=== PATIENT | male | born 1940 | race Caucasian/White ===

== ENCOUNTER 2017-10-30 14:40 | Outpatient (CLI) | payer MEDICARE, BC | END 2017-10-30 14:41 | disposition home or self-care (01) | LOC: BICRAD 14:40 | PROVIDERS: ATTEND Family Medicine | DX: J20.9 Acute bronchitis, unspecified (principal) | CPT/HCPCS: 71046 ==

== ENCOUNTER 2017-12-02 10:33 | Observation (INO) | payer MEDICARE, BC ==
[2017-12-02 11:29] LABS: #Eosinphils 0.2 thou/uL (0.0-0.7); #Lymphocytes 1.4 thou/uL (1.20-3.40); #Monocytes 0.6 thou/uL (0.11-0.59); #Neutrophils 4.1 thou/uL (1.40-6.50); %Basophils 0.1 % (0.0-1.0); %Eosinophils 3.4 % (0.0-10.0); %Lymphocytes 22.9 % (21.0-51.0); %Neutrophils 64.6 % (42.0-75.0); Hemoglobin 14.7 g/dL (14.0-18.0); Mean Corpuscular HGB CONC 34.3 g/dL (32.0-36.0); Mean Corpuscular Hemoglobin 32.5 pg (27.0-31.0); Mean Corpuscular Volume 94.7 fl (80.0-94.0); Mean Platelet Volume 8.4 fL (7.4-10.4); Platelet Count 126 thou/uL (130-400); RBC Distribution Width 12.9 % (11.5-14.5); Red Blood Cell (RBC) Count 4.54 mill/uL (4.70-6.10); White Blood Cell (WBC) Count 6.3 thou/uL (4.8-10.8)
[2017-12-02 11:56] LABS: CKMB 3.1 ng/mL (0-6.6); Troponin I Less than 0.010 ng/mL (< 0.028)
[2017-12-02 11:58] LABS: ALT (SGPT) 23 U/L (8-55); AST (SGOT) 24 U/L (5-34); Albumin 3.6 g/dL (3.4-4.8); Alkaline Phosphatase 54 U/L (40-150); Anion Gap 10 mmol/L (10-20); BUN (Urea Nitrogen) 15 mg/dL (8.4-25.7); Bilirubin, Total 0.7 mg/dL (0.2-1.2); Calc. Creatinine Clearance 0 mL/min (70-130); Calcium 8.9 mg/dL (7.8-10.44); Carbon Dioxide 25 mmol/L (23-31); Chloride 106 mmol/L (98-107); Estimated GFR-MDRD 73; Globulin 2.3 g/dL (2.4-3.5); Glucose 100 mg/dL (83-110); Potassium 4.6 mmol/L (3.5-5.1); Protein, Total 5.9 g/dL (5.8-8.1); Sodium 136 mmol/L (136-145)
--- NOTE | 2017-12-02 13:09 | CT ---
CT BRAIN NONCONTRAST: HISTORY: A 77-year-old male with headache, dizziness, blurred vision, nausea, and emesis. FINDINGS: There is no midline shift or any other mass effect. There is no evidence of acute intracranial hemor rhage, large cortical infarct, obstructive hydrocephalus, or extraaxial fluid collection. The calvar ium is intact. There is diffuse parenchymal volume loss. There are low attenuation areas in the whi te matter. These are nonspecific, but in a patient of this age, they are probably chronic ischemic w gregory matter changes due to microvascular atherosclerosis. IMPRESSION: 1) No acute intracranial findings. 2) Involutional changes and chronic ischemic white matter changes. jn [] POS: [facility]
[2017-12-02] MEDS ORDERED: hydrALAZINE 20 MG/ML VIAL SLOW IVP PRN (13:52)
[2017-12-02] MEDS ORDERED: Lorazepam 2 MG/ML VIAL SLOW IVP PRN (14:04)
[2017-12-02] MEDS ORDERED: traMADol HCl 50 MG TAB PO PRN (14:05)
[2017-12-02] MEDS ORDERED: Acetaminophen 325 MG TAB PO PRN (14:18)
[2017-12-02 14:22] LABS: Prothrombin Time 13.4 SEC (12.0-14.7)
--- NOTE | 2017-12-02 14:30 | PDOC.EVN ---
Event Note - Event Note Event Note: [facility]ATED #[id number]
[2017-12-02 14:42] VITALS: BMI 35.9
[2017-12-02 14:43] LABS: Hemoglobin A1c 5.8 % (4.0-6.0)
[2017-12-02] MEDS ORDERED: Melatonin 3 MG TAB PO PRN (17:24)
[2017-12-02] MEDS ORDERED: Sodium Chloride 0.65% Nasal 44 ML BOT EA NARE PRN (17:25)
--- NOTE | 2017-12-02 18:15 | HP ---
DATE OF ADMISSION: 12/02/2017 ADMITTING COMPLAINT: Blurry vision and gait disturbance. HISTORY OF PRESENT ILLNESS: This is a 77-year-old male who states that for the past 2 months or so o n and off, he has been having gait disturbance as well as blurry vision. Blurry vision started to ge t significantly worse in the last 2-3 days. Patient states that he also experienced tingling in the left hand and arm and also notes that while riding his horse, he is unable to swing his right leg angela und to get on the horse. The patient states prior to 2 months ago, he never had any of these symptom s. It is the first time he experienced them and have been progressively getting worse for the last 2 months. The patient otherwise denies any other alleviating or aggravating factors. No other associ ated symptoms or complaints noted currently; however, did state that in the past when he had some pos terior headaches as well as some nausea and vomiting. ALLERGIES: No known drug allergies. MEDICATIONS: See MAR. FAMILY HISTORY: Positive for hypertension on both sides. SOCIAL HISTORY: He smoked 30 years, a pack a day, quit about 25 years ago. Social drinker. REVIEW OF SYSTEMS: Twelve point review of systems is performed. Pertinent positives in the HPI. PHYSICAL EXAMINATION: VITAL SIGNS: Blood pressure 138/88, temperature 98, respiratory rate of 18, pulse of 88. GENERAL: Patient in no acute distress, sitting in bed. HEENT: Pupils are equal, round, reactive to light and accommodation. Extraocular muscles intact. O ral cavity moist and pink. Thyroid mobile, tender, non-nodular. NECK: Supple. No carotid artery bruits appreciated. CARDIOVASCULAR: Regular rate and rhythm. S1 and S2. No murmurs, rubs or gallops appreciated. LUNGS: Clear to auscultation bilaterally. No respiratory distress. Aerating well. ABDOMEN: Positive bowel sounds, soft, nontender. EXTREMITIES: A 1+ pitting edema bilateral lower extremities, 2+ peripheral pulses noted. NEUROLOGIC: Cranial nerves II-XII intact. Patient is alert and oriented x3. IMAGING: CT scan shows no acute intracranial findings, involutionary changes and chronic ischemic wh ite matter changes noted. LABORATORY DATA: CBC within normal limits. PT/INR within normal limits. BNP, metabolic panel withi n normal limits. ASSESSMENT AND PLAN: 1. Blurry vision. 2. Gait disturbance. 3. Diabetes mellitus type 2. 4. Hypertension. 5. Anxiety. At this point in time, we will admit the patient to the Internal Medicine team, tele monitoring. Miguel agrawal Neurology. We will obtain MRI of his head. The patient also states that he has had surgeries i n his cervical and lumbar spine. We will also obtain MRIs of the cervical and lumbar spine just to haja hinson sure he does not have any post-surgical changes or anything new that may be causing gait disturba nces as well. Blood pressure is stable. Target blood pressure systolic 120-140, heparin and Protoni x for GI DVT prophylaxis. We will obtain an A1c. The patient states that his last A1c was 5.7 bev vogel. We will hold off a.c. and at bedtime Accu-Cheks and sliding scale as if A1c is below 6, then p atient may not need this currently in the hospital and resume metformin upon the time of discharge. Case and plan discussed with the patient and at length. They understand and agree with this aishwarya n.
[2017-12-02] MEDS: Heparin 5,000 UNITS/ML VIAL SC SCH (20:15)
[2017-12-02] MEDS ORDERED: Escitalopram Oxalate 10 mg Tablet PO SCH (21:00)
[2017-12-02] MEDS ORDERED: traZODone HCl 150 MG TAB PO SCH ×2 (21:00→23:15)
[2017-12-02] MEDS ORDERED: Simvastatin 5 MG TAB PO SCH (21:00)
[2017-12-03 05:02] LABS: #Basophils 0.1 thou/uL (0.0-0.2); #Eosinphils 0.1 thou/uL (0.0-0.7); #Lymphocytes 1.5 thou/uL (1.20-3.40); #Monocytes 0.5 thou/uL (0.11-0.59); #Neutrophils 3.5 thou/uL (1.40-6.50); %Eosinophils 1.5 % (0.0-10.0); %Lymphocytes 26.4 % (21.0-51.0); %Monocytes 9.5 % (0.0-10.0); %Neutrophils 61.5 % (42.0-75.0); Hemoglobin 15.7 g/dL (14.0-18.0); Mean Corpuscular HGB CONC 34.3 g/dL (32.0-36.0); Mean Corpuscular Hemoglobin 32.2 pg (27.0-31.0); Mean Corpuscular Volume 93.9 fl (80.0-94.0); Mean Platelet Volume 8.5 fL (7.4-10.4); Platelet Count 136 thou/uL (130-400); RBC Distribution Width 12.8 % (11.5-14.5); Red Blood Cell (RBC) Count 4.87 mill/uL (4.70-6.10); White Blood Cell (WBC) Count 5.7 thou/uL (4.8-10.8)
[2017-12-03 05:29] LABS: Anion Gap 10 mmol/L (10-20); BUN (Urea Nitrogen) 11 mg/dL (8.4-25.7); Calc. Creatinine Clearance 114 mL/min (70-130); Calcium 9.5 mg/dL (7.8-10.44); Carbon Dioxide 26 mmol/L (23-31); Cardiac Risk 3.6 (Less than 4.5); Chloride 106 mmol/L (98-107); Cholesterol 175 mg/dl (< 200 Desired); Estimated GFR-MDRD 71; Glucose 119 mg/dL (83-110); HDL Cholesterol 49 mg/dL (>60 Neg Risk); LDL Cholesterol, Calculated 107 mg/dL; Potassium 4.5 mmol/L (3.5-5.1); Sodium 137 mmol/L (136-145); Triglycerides 93 mg/dL (Less than 150)
[2017-12-03 06:12] VITALS: TEMP 98.5
[2017-12-03] MEDS ORDERED: Clopidogrel Bisulfate 75 MG TAB PO SCH (09:00)
[2017-12-03] MEDS ORDERED: Pregabalin 50 MG CAP PO SCH (09:00)
[2017-12-03] MEDS ORDERED: Aspirin 81 mg Enteric Coated Tablet PO SCH (09:00)
[2017-12-03] MEDS: Heparin 5,000 UNITS/ML VIAL SC SCH (10:58)
[2017-12-03 11:26] VITALS: BP 154/73
--- NOTE | 2017-12-03 12:17 | PDOC.EVN ---
Event Note - Event Note Event Note: THE DICTATION SOFTWARE IS DOWN THUS USING THIS EVENT NOTE THE OFFICIAL DISCHARGE SUMMARY Admission date: 12/02/2017 Discharge date: 12/03/2017 Hospital course: 77 yr old male admitted due to blurry vision and headaches. The patient was admitted to internal medicine and also seen by neurology. the patient was advised to hold all BP medications if SBp was less than 120mmHg. The patient was to follow up out patient with his PCP and neurology in 1-2 weeks for further management and care. Patient was asymptomatic at point in time of discharge. Case and plan d/w patient and at length, they understand and agree with this plan Dipso: home FU: PCP and neurology in 2 weeks activity: as tolerated, with assistance as needed condition: stable prognosis: good diet: low fat, low calorie, high fiber diet Meds: see MCKENNA
--- NOTE | 2017-12-04 22:15 | CON ---
DATE OF CONSULTATION: 12/03/2017 IMPRESSION: 1. Transient lightheadedness and blurred vision secondary to hypotension. 2. Borderline diabetes. 3. Peripheral vascular disease. 4. Coronary artery disease. PLAN: 1. Continue Plavix. 2. Discontinue lisinopril. 3. Patient to be discharged home. HISTORY OF PRESENT ILLNESS: Mr. Pollock is a 77-year-old man, who came in yesterday due to complaints of having some diffuse blurred vision and feeling light headed. They checked his pressure at home a nd it was running around 90/50. He came into the emergency room for evaluation. He had a CT scan of the brain done, which was unremarkable. His laboratory studies show unremarkable CBC and serum chem istries. His symptoms have resolved yesterday. He reports having some neck pain and lower back pain but denies any focal weakness, numbness, slurred speech, double vision, or difficulty swallowing. PAST HISTORY: Otherwise unremarkable. FAMILY HISTORY: Noncontributory. SOCIAL HISTORY: No tobacco or alcohol. ALLERGIES: Hydrocodone and morphine. MEDICATIONS: Reviewed. REVIEW OF SYSTEMS: Extreme claustrophobia. PHYSICAL EXAM: GENERAL: Somewhat overweight elderly man sitting in a chair, in no distress. VITAL SIGNS: Stable. He is afebrile. HEENT: Unremarkable. NECK: Supple. EXTREMITIES: No cyanosis. NEUROLOGIC: He is alert and appropriate. His speech is fluent and clear. His exam is nonfocal. LABORATORY STUDIES: A1c was 5.8, lipid panel showed a ratio at 3.6. SUMMARY: This gentleman's symptoms are likely attributable to his hypotension. He is back to his ba anton. I do not see the need to do an MRI given his difficulties with claustrophobia. We happy to follow up with him as an outpatient.
--- NOTE | 2018-01-20 15:09 | EKG ---
Test Reason : DIZZINESS Blood Pressure : / mmHG Vent. Rate : 054 BPM Atrial Rate : 054 BPM P-R Int : 150 ms QRS Dur : 092 ms QT Int : 428 ms P-R-T Axes : 029 -30 010 degrees QTc Int : 405 ms Sinus bradycardia with marked sinus arrhythmia Left axis deviation Minimal voltage criteria for LVH, may be normal variant Abnormal ECG Confirmed by JOSE RAUL LEO ([id number]), purchase request editor JERICHO MONCADA ([id number]) on 01/20/2018 3:08:53 PM Referred By: WESLY LEO Confirmed By:JOSE RAUL LEO
== END 2017-12-03 12:45 | disposition home or self-care (01) ==
LOC: ERS 10:33 → 2SE 12:46
PROVIDERS: ADMIT Internal Medicine; ATTEND Internal Medicine
DX: I95.9 Hypotension, unspecified (principal); H53.8 Other visual disturbances; R42 Dizziness and giddiness; R20.2 Paresthesia of skin; R26.9 Unspecified abnormalities of gait and mobility; I10 Essential (primary) hypertension; F41.9 Anxiety disorder, unspecified; I25.10 Atherosclerotic heart disease of native coronary artery without angina pectoris; E11.51 Type 2 diabetes mellitus with diabetic peripheral angiopathy without gangrene; Z87.891 Personal history of nicotine dependence; Z79.02 Long term (current) use of antithrombotics/antiplatelets; Z79.82 Long term (current) use of aspirin; Z79.84 Long term (current) use of oral hypoglycemic drugs; Z79.899 Other long term (current) drug therapy; Z88.5 Allergy status to narcotic agent
CPT/HCPCS: 70450; 80048; 80061; 82553; 83036; 83930; 84484; 85025; 85610; 85730; 93005; 93306; 97139 ×2; 99285; G0378; 36415; 80053; 84443; G9162-GN-CH; G9163-GN-CH; J1644

== ENCOUNTER 2018-03-20 09:06 | Day surgery (SDC) | payer MEDICARE, BC ==
[2018-03-19 12:22] VITALS: BMI 34.9
[2018-03-20] MEDS ORDERED: Midazolam HCl 2 mg/2 ml Vial ONE (11:44)
--- NOTE | 2018-03-20 11:48 | CT ---
CT CERVICAL SPINE: History: Neck pain. Technique: Axial images were obtained with coronal and sagittal reconstructions. FINDINGS: CT images demonstrate disc space height loss with anterior and posterior osteophytes seen at the C3-4 level. There is also anterior and posterior osteophytes at C5-6, C6-7, and C7-T1 levels. C1-2: Unremarkable. C2-3: There is some right sided C2-3 facet hypertrophic changes. Broad based central disc protrusion is seen. No significant evidence of high grade central stenosis seen. A moderate degree of right C2-3 neural foraminal narrowing is seen due to right sided facet hypertrophy. C3-4: Disc space height loss is seen. There is broad based disc osteophyte complex centrally compress ing the thecal sac, resulting in a moderate degree of central spinal stenosis. Moderate bilateral C3- 4 neural foraminal narrowing is seen due to uncal vertebral osteophyte hypertrophy. C4-5: Mild right sided C4-5 neural foraminal narrowing is seen. The left neural foramen is patent. C5-6: No significant degree of central spinal stenosis seen. The neural foramen are patent. C6-7: Moderate bilateral C6-7 neural foraminal narrowing is seen due to uncal vertebral osteophyte hy pertrophy. Central canal is patent. C7-T1: Unremarkable. There also appears to be bilateral atherosclerotic plaque seen in the distal right and left common ca rotid arteries extending to the right and left internal carotid arteries. Some heterogeneity noted in the lower pole of the lower pole of the left thyroid globe. Further laura p using sonography may be of use. IMPRESSION: 1. Cervical spine degenerative changes with central and neural foraminal narrowing as described above . POS: [facility]
[2018-03-20] MEDS ORDERED: Fentanyl 100 MCG/2 ML VIAL ONE (12:45)
--- NOTE | 2018-03-20 13:18 | RAD ---
RADIOGRAPH LUMBAR SPINE 3 VIEWS: DATE: 03-20-18 HISTORY: 78-year-old male with chronic low back pain. TECHNIQUE: Three lateral views in flexion, extension and neutral. FINDINGS: Frontal view radiograph of 12-31-14 demonstrated lumbar type vertebrae. Vertebral body heights are lyn ntained except for minimal, chronic appearing anterior wedging of L5, L1, and T12. Moderate disc spac e narrowing at all levels. Slight degenerative retrolisthesis of L1 on L2. Mild grade I anterolisthes is of L2 on L3. Grade I anterolisthesis of L4 on L5 is minimally worse on the flexion view compared t o the extension view. Multilevel high grade degenerative facet disease throughout the mid and lower l umbar spine. Laminectomy defects from L2-3 through L5-S1. IMPRESSION: 1. Lumbar spondylosis with multilevel degenerative disc disease and facet osteoarthrosis. 2. Status post laminectomies throughout the mid and lower lumbar spine. 3. Grade I spondylolisthesis at L4-L5, minimally unstable. SIA POS: [facility]
[2018-03-20] MEDS ORDERED: Gadobenate Dimeglumine 529 MG/1 ML (20ML VIAL) ONE (13:59)
--- NOTE | 2018-03-20 15:53 | MRI ---
PRE AND POST CONTRAST ENHANCED MRI IMAGES LUMBAR SPINE: History: Patient with low back pain. Technique: Multiplanar, multisequence pre and post contrast enhanced MR images of the lumbar spine ob tained. Comparison: Pre-operative lumbar spine MRI 10-07-14. FINDINGS: T12-L1: Unremarkable. L1-2: There is some disc desiccation seen. There is a broad based disc bulge with bilateral facet hyp ertrophy. This results in mild to moderate central and lateral recess stenosis. Moderate bilateral ne ural foraminal narrowing also seen. MRI appearance is stable and unchanged since the previous compari son exam. L2-3: Disc desiccation is seen. There is irregularity involving the inferior endplate of L2 and super ior endplate of L3. There is interval development of Modic type II changes in the superior endplate o f L3. There is a broad based disc bulge with bilateral facet and ligamentum flavum hypertrophy. Synov ial hypertrophy is also present at this level. Ligamentum flavum hypertrophy is also present. Finding s demonstrate moderate to severe central and lateral recess stenosis, not significantly changed since the previous exam. There does appear to be moderate to severe bilateral neural foraminal narrowing a lso seen. L3-4: Disc desiccation is seen. There is a broad based disc bulge with bilateral facet hypertrophy. T he patient has had interval L4 laminectomy. No significant degree of L3-4 central spinal stenosis is seen. Moderate bilateral neural foraminal narrowing is also seen due to facet hypertrophic changes at L3-4. No significant evidence of epidural scarring is seen at L3 or L4 levels. L4-5: There is some disc desiccation seen. There is a broad based disc bulge. There is moderate to se lars right and moderate left sided neural foraminal narrowing due to facet hypertrophic changes. No s ignificant degree of central spinal stenosis is seen. L5-S1: Disc desiccation is seen. There is bilateral facet hypertrophy seen. There is moderate to andrea re left and moderate right sided neural foraminal narrowing due to facet hypertrophic changes. This i s not significantly changed since the previous comparison examination. IMPRESSION: Interval L4 laminectomy changes. No significant central or neural foraminal narrowing is seen when co mpared to the previous comparison exam. MRI appearance demonstrates no obvious evidence of recurrent disc protrusions or significant interval changes. There does appear to be some newly developed Modic changes in the superior endplate of L3. POS: [facility]
--- NOTE | 2018-03-20 16:08 | MRI ---
MRI CERVICAL SPINE WITH AND WITHOUT CONTRAST: INDICATIONS: Neck pain. History of remote surgery. TECHNIQUE: Multiplanar, multisequential imaging of the cervical spine obtained. Post contrast images obtained with the administration of IV MultiHance. FINDINGS: The cervical vertebrae maintain height and alignment. Vertebral body signal is normal. No edema. N o compression deformity. Mild loss of disk space at all levels of the cervical spine. At C2-C3 there is a disk osteophyte complex flattening the thecal sac and abutting the anterior cord. Mild right foraminal narrowing due to facet and uncinate hypertrophy. At C3-C4, broad-based disk bulge and spondylosis impinge on a mildly flattened anterior cord. Bilate ral foraminal narrowing due to facet and uncinate hypertrophy. At C4-C5, there is disk bulge and spondylosis abutting the anterior cord. Hypertrophic changes in th e posterior canal abut the posterior cord. Bilateral foraminal narrowing secondary to facet and unci leno hypertrophy. At C5-C6, mild spondylosis. Anterior subarachnoid space is effaced but is preserved. Mild bilateral foraminal narrowing due to facet and uncinate hypertrophy. At C6-C7, posterior disk bulge and spondylosis efface the anterior subarachnoid space. No significan t cord impingement. Bilateral foraminal narrowing secondary to facet and uncinate hypertrophy. At C7-T1, anterior subarachnoid space is preserved. Mild left foraminal narrowing. At T1-T2, disk bulge and spondylosis abut the anterior cord. Cervical cord signal is normally maintained. No abnormal enhancement identified. IMPRESSION: Spondylosis encroaches into the spinal canal and is most prominent at the C2-C3, C3-C4, and C4-C5 lev els, as described above. Foraminal encroachment at multiple levels, as noted above. POS: [facility]
--- NOTE | 2018-03-20 17:07 | RAD ---
CERVICAL SPINE FIVE VIEWS: HISTORY: Neck pain. FINDINGS: Vertebral body heights are maintained. Disk space narrowing and minimal degenerative retrolisthesis at the C3-C4 level, where osteophytosis is also most pronounced. At the C4-C5 level, there is 0.4 cm spondylolisthesis upon flexion. The cervicothoracic junction is intact. No acute fracture, disloca tion, or aggressive osseous erosions. Calcification over the carotid bifurcations. IMPRESSION: 1. Cervical spondylosis. Translational motion at the C4-C5 level. 2. Atherosclerosis. POS: [facility]
== END 2018-03-20 16:37 | disposition home or self-care (01) ==
LOC: SDC/OP 09:06
PROVIDERS: ATTEND Surgery
DX: M47.892 Other spondylosis, cervical region (principal); M50.30 Other cervical disc degeneration, unspecified cervical region; M48.061 Spinal stenosis, lumbar region without neurogenic claudication; M51.36 Other intervertebral disc degeneration, lumbar region; I25.10 Atherosclerotic heart disease of native coronary artery without angina pectoris; E78.5 Hyperlipidemia, unspecified; I10 Essential (primary) hypertension; E11.51 Type 2 diabetes mellitus with diabetic peripheral angiopathy without gangrene; I70.211 Atherosclerosis of native arteries of extremities with intermittent claudication, right leg; Z79.82 Long term (current) use of aspirin; Z79.02 Long term (current) use of antithrombotics/antiplatelets; Z79.84 Long term (current) use of oral hypoglycemic drugs; Z79.899 Other long term (current) drug therapy; Z88.5 Allergy status to narcotic agent
CPT/HCPCS: 72050; 72100; 72125; 72156; 72158; 82565; A9579; J2250; J3010

== ENCOUNTER 2018-06-13 12:31 | Emergency (ER) | payer MEDICARE, BC ==
[2018-06-13] MEDS ORDERED: Diazepam 2.5 MG GEL ONE (13:09)
[2018-06-13] MEDS ORDERED: Lorazepam 2 MG/ML VIAL ONE (13:12)
== END 2018-06-13 13:25 | disposition home or self-care (01) ==
LOC: SCSER 12:31
DX: F41.9 Anxiety disorder, unspecified (principal); M25.562 Pain in left knee; T49.0X5A Adverse effect of local antifungal, anti-infective and anti-inflammatory drugs, initial encounter; K21.9 Gastro-esophageal reflux disease without esophagitis; Z87.891 Personal history of nicotine dependence
CPT/HCPCS: 96372; J2060

== ENCOUNTER 2018-08-20 08:57 | Outpatient (CLI) | payer MEDICARE, BC ==
--- NOTE | 2018-08-20 11:13 | CT ---
CT ABDOMEN WITH AND WITHOUT IV CONTRAST CT PELVIS WITH AND WITHOUT IV CONTRAST: Date: 08-20-18 History: Gross hematuria. Comparison: Noncontrast CT abdomen and pelvis 11-28-14 FINDINGS: There is a nonobstructing inferior pole right renal calculus measuring approximately 7 mm with smalle r nonobstructing calculi in the superior pole right kidney. The previously seen inferior pole left re nal calculus on the prior study in 2014 is not evident on this exam. No ureteral calculus is seen justina aterally and there is no evidence of hydronephrosis. No definite persistent filling defect is seen in the visualized opacified portions of the renal collecting systems and segmentally opacified ureters bilaterally. There is a low density focus seen within the anterior aspect mid port right kidney which is felt to be outside of the confines of the renal collecting system and may represent a small parap elvic renal cyst in this region. No enhancing renal mass is seen bilaterally. Mild vascular calcifications are seen in the limited visualized thoracic aorta with dense vascular ca lcifications involving the coronary arteries as well as the abdominal aorta and iliac arteries. The liver, spleen, pancreas, bilateral adrenal glands, and partially distended urinary bladder demons trate a normal CT appearance. Prominent calcifications are again seen in the prostate gland. There is colonic diverticulosis noted. There has been no other interval change compared to the prior study. There are degenerative changes i n the spine. IMPRESSION: 1. Nonobstructing right renal calculi. 2. No left renal or bilateral ureteral calculi are seen. 3. No enhancing renal mass is seen bilaterally. There is a low density focus in the midportion right kidney which appears outside of the confines of the renal collecting system and is difficult to adequ ately characterize due to very small size and could potentially represent a parapelvic reanl cyst. Th ere is slight increased density present in this lesion on post contrast images, but this could be art ifactual due to small size. 4. Dense atherosclerotic vascular calcifications. 5. Colonic diverticulosis. POS: [facility]
[2018-08-20] MEDS ORDERED: Iopamidol 370 76% 100 ML VIAL ONE (11:18)
== END 2018-08-20 08:58 | disposition home or self-care (01) ==
LOC: BICCT 08:57
PROVIDERS: ATTEND Urology
DX: R31.0 Gross hematuria (principal); N20.0 Calculus of kidney; I70.0 Atherosclerosis of aorta; I25.10 Atherosclerotic heart disease of native coronary artery without angina pectoris; I70.8 Atherosclerosis of other arteries; N28.9 Disorder of kidney and ureter, unspecified; K57.30 Diverticulosis of large intestine without perforation or abscess without bleeding; M47.816 Spondylosis without myelopathy or radiculopathy, lumbar region
CPT/HCPCS: 36415; 74178; 82550; 82565; 82607; 84436

== ENCOUNTER 2018-10-25 00:18 | Outpatient (CLI) | payer MEDICARE, BC ==
[2018-10-25 11:57] LABS: Hemoglobin 14.4 g/dL (14.0-18.0); Mean Corpuscular HGB CONC 31.6 g/dL (32.0-36.0); Mean Corpuscular Hemoglobin 30.4 pg (27.0-31.0); Mean Corpuscular Volume 96.1 fL (78.0-98.0); Mean Platelet Volume 10.1 fL (7.4-10.4); PTT 28.4 SEC (22.9-36.1); Platelet Count 144 thou/uL (130-400); Prothrombin Time 13.1 SEC (12.0-14.7); RBC Distribution Width 12.7 % (11.5-14.5); Red Blood Cell (RBC) Count 4.76 mill/uL (4.70-6.10); White Blood Cell (WBC) Count 5.1 thou/uL (4.8-10.8)
[2018-10-25 12:20] LABS: Anion Gap 12 mmol/L (10-20); BUN (Urea Nitrogen) 13 mg/dL (8.4-25.7); Calc. Creatinine Clearance 0 mL/min (70-130); Calcium 9.7 mg/dL (7.8-10.44); Carbon Dioxide 30 mmol/L (23-31); Chloride 101 mmol/L (98-107); Estimated GFR-MDRD 68; Glucose 101 mg/dL (83-110); Potassium 4.6 mmol/L (3.5-5.1); Sodium 138 mmol/L (136-145)
--- NOTE | 2018-10-26 16:42 | EKG ---
Test Reason : Blood Pressure : / mmHG Vent. Rate : 045 BPM Atrial Rate : 045 BPM P-R Int : 162 ms QRS Dur : 096 ms QT Int : 448 ms P-R-T Axes : 057 -20 004 degrees QTc Int : 387 ms Marked sinus bradycardia with sinus arrhythmia baseline artifact Abnormal ECG When compared with ECG of 02-DEC-2017 Manual comparsion needed Confirmed by DR. Nafisa LUNDBERG ([id number]) on 10/26/2018 4:42:14 PM Referred By: STEPHANIE Confirmed By:DR. Nafisa LUNDBERG
== END 2018-10-25 00:19 | disposition home or self-care (01) ==
LOC: LABBT 00:18
PROVIDERS: ATTEND Surgery
DX: Z01.818 Encounter for other preprocedural examination (principal); M51.16 Intervertebral disc disorders with radiculopathy, lumbar region
CPT/HCPCS: 80048; 85027; 85610; 85730; 93005; 93010

== ENCOUNTER 2018-11-01 05:56 | Day surgery (SDC) | payer MEDICARE, BC ==
[2018-11-01] MEDS ORDERED: Fentanyl 100 MCG/2 ML VIAL ONE (06:12)
[2018-11-01] MEDS ORDERED: Lidocaine 2% Jelly 5 ML TUBE ONE (06:12)
[2018-11-01] MEDS ORDERED: Bacitracin Zinc Ointment 30 gm TUBE ONE (06:51)
[2018-11-01] MEDS ORDERED: Thrombin 5000 UNITS/5 ML VIAL ONE (06:51)
[2018-11-01] MEDS ORDERED: Sodium Chloride 0.9% 10 ML ONE (06:53)
[2018-11-01] MEDS ORDERED: Milk Of Magnesia 30 ML UDCUP PO PRN (10:01)
[2018-11-01] MEDS ORDERED: tiZANidine HCl 4 MG TAB PO PRN (10:01)
[2018-11-01] MEDS ORDERED: Promethazine HCl 25 MG/ML VIAL IM PRN (10:01)
[2018-11-01] MEDS ORDERED: Acetaminophen 325 MG TAB PO PRN (10:01)
[2018-11-01] MEDS ORDERED: Meperidine HCl/PF 25 MG/ML VIAL SLOW IVP PRN (10:01)
[2018-11-01] MEDS ORDERED: Mag-Al 1200 mg/1200 mg/30 ML UDCUP PO PRN (10:01)
[2018-11-01] MEDS ORDERED: Fleet Enema 133 ML BOT PR PRN (10:01)
[2018-11-01] MEDS ORDERED: traMADol HCl 50 MG TAB PO PRN (10:01)
[2018-11-01] MEDS ORDERED: Bisacodyl 10 MG SUPP PR PRN (10:01)
[2018-11-01] MEDS ORDERED: ALPRAZolam 0.5 MG TAB PO PRN ×2 (10:03→10:54)
[2018-11-01] MEDS ORDERED: NAPROXEN SODIUM PO PRN (10:03)
--- NOTE | 2018-11-01 10:17 | OP ---
DATE OF PROCEDURE: 11/01/2018 OPERATING ROOM: OR 11. WOUND CLASSIFICATION: Type 1 wound. FISHING VESSEL OPERATOR: Ludwig Germain PA-C. 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 PROCEDURES PERFORMED: Bilateral revision L2-L3 hemilaminotomy, foraminotomies for decompression of the cauda equina and nerve roots. Modifier-50 should be added to this surgery as this was a bilateral surgery. DESCRIPTION OF PROCEDURE: After informed consent was obtained from the patient, the patient was brought to the OR. Proper patient, pause, and identification were carried out. He was placed in excellent general endotracheal anesthesia and positioned prone on the OR table. All appropriate points were padded. We identified the prior lumbar wound and this region was sterilely cleansed, prepared, and draped. Proper patient, pause, and identification were carried out. The wound was then opened with a combination of sharp, monopolar, and blunt dissection, and the L2-L3 segment was identified. This region was sterilely cleansed, prepared, and draped. Proper patient, pause, and identification were carried out prior to wound was partially opened and expose the L2-L3 segment. Localization film confirmed our area of interest. We then performed an L2-L3 bilateral revision hemilaminotomy and foraminotomy and partial facetectomies with excellent decompression of the common dural tube and the L2 and L3 nerve roots. Copious irrigation occurred throughout as did maximizing hemostasis. The wound was then copiously irrigated and closed in anatomic layers following hemostasis, sprinkled vancomycin powder. The patient emerged from anesthesia. There was no spinal fluid leak. Job ID: [id number]
[2018-11-01] MEDS ORDERED: Naproxen 500 MG TAB PO PRN (10:54)
[2018-11-01] MEDS: Sodium Chloride 0.9% 1,000 ML IV SCH (11:28)
[2018-11-01] MEDS: Acetaminophen/Codeine 30-300mg Tablet PO PRN ×2 (11:29→21:57)
[2018-11-01 11:32] VITALS: BMI 35.8
[2018-11-01] MEDS: CEFAZOLIN 2 GM in Premix Bag 1 BAG IVPB SCH ×2 (16:13→22:00)
[2018-11-01] MEDS ORDERED: METFORMIN HCL 1000 MG PO SCH (17:00)
[2018-11-01] MEDS ORDERED: metFORMIN 500 MG TAB PO SCH (17:00)
[2018-11-01] MEDS: Tamsulosin HCl 0.4 MG CAP PO SCH (20:29)
[2018-11-01] MEDS ORDERED: Tamsulosin HCl 0.4 MG CAP PO SCH (21:00)
[2018-11-01] MEDS ORDERED: traZODone HCl 150 MG TAB PO SCH ×2 (21:00)
[2018-11-02] MEDS: Sodium Chloride 0.9% 1,000 ML IV SCH (00:04)
[2018-11-02 05:01] VITALS: BP 122/63; TEMP 98
[2018-11-02] MEDS: Tamsulosin HCl 0.4 MG CAP PO SCH (08:29)
[2018-11-02] MEDS: Acetaminophen/Codeine 30-300mg Tablet PO PRN (08:33)
[2018-11-02] MEDS ORDERED: Pioglitazone HCl 15 MG TAB PO SCH (09:00)
[2018-11-02] MEDS ORDERED: PIOGLITAZONE HCL 30 MG PO SCH (09:00)
[2018-11-02] MEDS ORDERED: Non-Formulary Item 1 EACH (Esomeprazole Magnesium [Nexium] 20 MG) PO SCH (09:00)
[2018-11-02] MEDS ORDERED: Finasteride 5 MG TAB PO SCH ×2 (09:00)
[2018-11-02] MEDS ORDERED: PREGABALIN 225 MG PO SCH (09:00)
[2018-11-02] MEDS ORDERED: Magnesium Oxide 400 MG TAB PO SCH (09:00)
[2018-11-02] MEDS ORDERED: Pregabalin 75 MG CAP PO SCH (09:00)
[2018-11-02] MEDS ORDERED: MAGNESIUM OXIDE PO SCH (09:00)
--- NOTE | 2018-11-02 11:57 | PRG ---
DATE OF SERVICE: 11/02/2018 SUBJECTIVE: Mr. Pollock is postoperative day 1 from lumbar decompression. He is doing well with improvement in his leg pain. He has mobilized. We will mobilize him more this morning and plan for dismissal. We went over both intra and postoperative issues. Job ID: [id number]
== END 2018-11-02 11:58 | disposition home or self-care (01) ==
LOC: SDC 05:56 → SURG A 11:00 → SDC 11-02 11:58
PROVIDERS: ATTEND Surgery
PROC: 01NB0ZZ Release Lumbar Nerve, Open Approach (ICD-10-PCS; principal; 2018-11-01)
DX: M48.061 Spinal stenosis, lumbar region without neurogenic claudication (principal); M54.16 Radiculopathy, lumbar region; F32.9 Major depressive disorder, single episode, unspecified; K21.9 Gastro-esophageal reflux disease without esophagitis; Z87.891 Personal history of nicotine dependence; Z79.02 Long term (current) use of antithrombotics/antiplatelets; Z79.82 Long term (current) use of aspirin; Z79.84 Long term (current) use of oral hypoglycemic drugs; Z79.899 Other long term (current) drug therapy; Z88.5 Allergy status to narcotic agent; Z95.5 Presence of coronary angioplasty implant and graft
CPT/HCPCS: 76000; J3010; J3370; J3490

== ENCOUNTER 2019-05-17 09:55 | Day surgery (SDC) | payer MEDICARE, BC ==
[2019-05-16 14:09] VITALS: BMI 35.6
--- NOTE | 2019-05-17 12:54 | RAD ---
XR Cervical Spine 4 View Min History: Pain Comparison: MRI same day Findings: No acute fracture or malalignment. Multilevel degenerative disc space height loss throughou t the cervical spine. Multilevel facet arthrosis. On the flexion-extension views the C1-C5 levels are visualized as a shoulders obscure the lower cervical spine. No abnormal translation with flexion or extension. Impression: No abnormal translation with flexion or extension.
--- NOTE | 2019-05-17 13:03 | MRI ---
MRI CERVICAL SPINE WITH AND WITHOUT CONTRAST: Date: 05/17/19 INDICATION: Radiculopathy. Neck and arm pain. Comparison made to MRI cervical spine from 03/20/18. FINDINGS: Cervical vertebra maintain height and alignment. Degenerative changes are again noted. There is loss of disc space at C3-4 and to a lesser degree at C4-5, C5-6, and C6-7. These degenerative disc changes appear stable from 2018. Posterior disc bulge and spondylosis at C2-3 abut the anterior cord and appear stable from the prior exam. Posterior disc bulge and spondylosis at C3-4 also abut the anterior cord and produce slight flattenin g of the anterior cord. Bilateral foraminal encroachment due to facet and uncinate hypertrophy. These findings appear stable from prior exam. At C4-5, posterior disc bulge and spondylosis abut and mildly flatten the anterior cord. Hypertrophic changes in the posterior canal at this level abut the posterior cord resulting in moderate cervical canal stenosis. The findings are stable from the prior exam. There is bilateral foraminal stenosis ag ain noted. At C5-6, mild disc bulge and spondylosis is present. However, the anterior subarachnoid space is pres erved, although effaced. Mild foraminal encroachment due to uncinate hypertrophy. At C6-7, disc bulge and spondylosis efface the anterior subarachnoid space. Bilateral foraminal narro wing due to facet and uncinate hypertrophy. Cervical cord signal is preserved with no evidence of myelomalacia. IMPRESSION: The disc bulge and spondylosis at C2-3, C3-4, and C4-5 again noted, producing cervical canal stenosis and foraminal encroachment, as described above. Findings appear stable from 2018. POS: [facility]
== END 2019-05-17 13:25 | disposition home or self-care (01) ==
LOC: SDC/OP 09:55
PROVIDERS: ATTEND Physician Assistant Surgical
DX: M47.22 Other spondylosis with radiculopathy, cervical region (principal); M48.02 Spinal stenosis, cervical region; Z79.01 Long term (current) use of anticoagulants; Z79.82 Long term (current) use of aspirin; Z79.84 Long term (current) use of oral hypoglycemic drugs; Z79.899 Other long term (current) drug therapy; Z88.5 Allergy status to narcotic agent
CPT/HCPCS: 36415; 72050; 72156; 82565

== ENCOUNTER 2019-07-02 05:56 | Inpatient (IN) | payer MEDICARE, BC ==
[2019-07-01 13:43] VITALS: BMI 34.3
[2019-07-02] MEDS ORDERED: Thrombin 5000 UNITS/5 ML VIAL ONE (06:27)
[2019-07-02] MEDS ORDERED: Sodium Chloride 0.9% 10 ML ONE (06:27)
[2019-07-02 06:40] LABS: #Eosinphils 0.2 thou/uL (0.0-0.7); #Lymphocytes 1.5 thou/uL (1.20-3.40); #Monocytes 0.7 thou/uL (0.11-0.59); #Neutrophils 4.2 thou/uL (1.40-6.50); %Basophils 0.7 % (0.0-1.0); %Eosinophils 2.9 % (0.0-10.0); %Lymphocytes 22.3 % (21.0-51.0); %Monocytes 10.9 % (0.0-10.0); %Neutrophils 63.1 % (42.0-75.0); Hemoglobin 16.4 g/dL (14.0-18.0); Mean Corpuscular Volume 91.1 fL (78.0-98.0); Platelet Count 151 thou/uL (130-400); RBC Distribution Width 13.6 % (11.5-14.5); Red Blood Cell (RBC) Count 5.29 mill/uL (4.70-6.10); White Blood Cell (WBC) Count 6.6 thou/uL (4.8-10.8)
[2019-07-02 06:56] LABS: INR-International Normal Ratio 0.9; PTT 26.3 SEC (22.9-36.1); Prothrombin Time 12.6 SEC (12.0-14.7)
[2019-07-02 07:02] LABS: Anion Gap 13 mmol/L (10-20); BUN (Urea Nitrogen) 14 mg/dL (8.4-25.7); Calc. Creatinine Clearance 93 mL/min (70-130); Calcium 9.4 mg/dL (7.8-10.44); Carbon Dioxide 28 mmol/L (23-31); Chloride 102 mmol/L (98-107); Estimated GFR-MDRD 61; Glucose 120 mg/dL (83-110); Potassium 3.9 mmol/L (3.5-5.1); Sodium 139 mmol/L (136-145)
[2019-07-02] MEDS ORDERED: Midazolam HCl 2 mg/2 ml Vial ONE (07:03)
[2019-07-02] MEDS ORDERED: Fentanyl 100 MCG/2 ML VIAL ONE ×3 (07:15→10:47)
[2019-07-02] MEDS ORDERED: Propofol 500 MG/50 ML VIAL ONE (08:31)
[2019-07-02] MEDS ORDERED: Ondansetron HCl/PF 4 MG/2 ML Vial IVP PRN (09:24)
[2019-07-02] MEDS ORDERED: Promethazine HCl 25 MG/ML VIAL SLOW IVP PRN (09:24)
[2019-07-02] MEDS ORDERED: Promethazine HCl 25 MG/ML VIAL IM PRN (09:24)
[2019-07-02] MEDS ORDERED: HYDROmorphone 2 MG/ML VIAL SLOW IVP PRN (09:24)
[2019-07-02] MEDS ORDERED: PROPOFOL 200 MG/20 ML VIAL ONE (09:38)
[2019-07-02] MEDS ORDERED: Lidocaine 1% PF 5 ML VIAL ONE (09:38)
[2019-07-02] MEDS ORDERED: Rocuronium Bromide 10 MG/ML (10ML VIAL) ONE (09:38)
[2019-07-02] MEDS ORDERED: Ondansetron PF 4 MG/2 ML Vial ONE (09:38)
[2019-07-02] MEDS ORDERED: Glycopyrrolate 0.2 MG/ML 5 ML SYRINGE ONE (09:38)
[2019-07-02] MEDS ORDERED: Dexamethasone 20 MG/5 ML VIAL ONE (09:38)
[2019-07-02] MEDS ORDERED: Ondansetron PF 4 MG/2 ML Vial IVP PRN (10:33)
[2019-07-02] MEDS ORDERED: Bisacodyl 10 MG SUPP PR PRN (10:33)
[2019-07-02] MEDS ORDERED: Acetaminophen 325 MG TAB PO PRN (10:33)
[2019-07-02] MEDS ORDERED: Mag-Al 1200 mg/1200 mg/30 ML UDCUP PO PRN (10:33)
[2019-07-02] MEDS ORDERED: Fleet Enema 133 ML BOT PR PRN (10:33)
[2019-07-02] MEDS ORDERED: Milk Of Magnesia 30 ML UDCUP PO PRN (10:33)
[2019-07-02] MEDS ORDERED: ALPRAZolam 0.5 MG TAB PO PRN (10:35)
[2019-07-02] MEDS ORDERED: Magnesium Oxide 400 MG TAB PO PRN (10:35)
[2019-07-02] MEDS ORDERED: HYDROmorphone 0.5 MG/0.5 ML SYRINGE ONE (10:47)
[2019-07-02] MEDS: Sodium Chloride 0.9% 1,000 ML IV SCH ×2 (12:42→15:47)
[2019-07-02] MEDS ORDERED: CEFAZOLIN 2 GM in Premix Bag 1 BAG IVPB SCH (14:00)
--- NOTE | 2019-07-02 14:20 | EKG ---
Test Reason : PREOP Blood Pressure : / mmHG Vent. Rate : 059 BPM Atrial Rate : 059 BPM P-R Int : 168 ms QRS Dur : 106 ms QT Int : 450 ms P-R-T Axes : 068 -39 022 degrees QTc Int : 445 ms Sinus bradycardia Left axis deviation Abnormal ECG When compared with ECG of 25-OCT-2018 10:55, QT has lengthened Confirmed by GRACE RODRIGUEZ, SRocky ([id number]) on 07/02/2019 2:19:35 PM Referred By: STEPHANIE Confirmed By:DR. Kayleen EDWARDS MD
--- NOTE | 2019-07-02 14:33 | OP ---
DATE OF PROCEDURE: 07/02/2019 LOCATION: OR 12. 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 PROCEDURES PERFORMED: 1. Anterior C3-C4, C4-C5, and C5-C6 diskectomies for decompression of spinal cord and nerve roots. 2. Anterior cervical plate and screw fixation, C3, C4, C5, and C6. 3. Interbody spacer placement packed with local bone autograft obtained from the same incision, and allograft C3-C4, C4-C5, and C5-C6. 4. Use of operative microscope for microdissection. DESCRIPTION OF PROCEDURE: After informed consent was obtained from the patient, the patient was brought to the OR. Proper patient, pause, and identification were carried out. We then identified the right anterior oblique region and approach to the C3 through C6 segments. This region was sterilely cleansed, prepared, and draped. Proper patient, pause, and identification were carried out. The wound was then opened with combination of sharp, monopolar, and blunt dissection, proceeded medial to the right carotid sheath and lateral to the tracheoesophageal bundle. We identified the prevertebral layer of deep cervical fascia and longus colli muscles. Nares were swept laterally. Retractors were placed. We then performed C3-C4 diskectomy with the use of operative microscope for microdissection with excellent decompression of common dural tube and nerve roots. We prepared the endplates and interbody spacer packed with graft was placed at C3-C4. We then distracted C4-C5 and diskectomy was performed there. Endplates were prepared and spacer was placed at C4-C5. We then did the same thing at C5-C6 diskectomy, preparation of the endplates and placement of interbody spacer at C5-C6. Again, packed with graft. Microscope was removed and cervical plate and screw fixation at C3, C4, C5, and C6 have been occurred. Copious irrigation occurred throughout as maximizing hemostasis. The wound was then closed in anatomic layers over drain. The patient then emerged from anesthesia. Job ID: [id number]
[2019-07-02] MEDS: Meperidine HCl/PF 25 MG/ML VIAL SLOW IVP PRN ×2 (14:53→17:42)
[2019-07-02] MEDS: tiZANidine HCl 4 MG TAB PO PRN (14:53)
[2019-07-02] MEDS: CEFAZOLIN 2 GM in Premix Bag 1 BAG IVPB SCH ×2 (15:47→23:02)
[2019-07-02] MEDS: traMADol HCl 50 MG TAB PO PRN (17:45)
[2019-07-02] MEDS: metFORMIN 500 MG TAB PO SCH (20:25)
[2019-07-02] MEDS ORDERED: traZODone HCl 150 MG TAB PO SCH (21:00)
[2019-07-03] MEDS: Meperidine HCl/PF 25 MG/ML VIAL SLOW IVP PRN ×2 (00:13→06:10)
[2019-07-03] MEDS: traMADol HCl 50 MG TAB PO PRN ×2 (00:14→06:09)
[2019-07-03] MEDS: tiZANidine HCl 4 MG TAB PO PRN (00:14)
[2019-07-03] MEDS: metFORMIN 500 MG TAB PO SCH (08:24)
[2019-07-03] MEDS ORDERED: Pregabalin 75 MG CAP PO SCH (09:00)
[2019-07-03] MEDS ORDERED: Chlorthalidone 25 MG TAB PO SCH (09:00)
[2019-07-03] MEDS: CEFAZOLIN 2 GM in Premix Bag 1 BAG IVPB SCH (10:01)
[2019-07-03 11:07] VITALS: BP 149/75; TEMP 98.3
[2019-07-03] MEDS ORDERED: Pantoprazole 40 MG VIAL IVP SCH (11:52)
[2019-07-03] MEDS ORDERED: Sodium Chloride 0.9% (PF) 10 ML VIAL FS SCH (12:00)
[2019-07-03] MEDS ORDERED: Dexamethasone 6 MG in Sodium Chloride 0.9% 50 ML IVPB SCH (12:00)
--- NOTE | 2019-07-03 12:11 | PRG ---
DATE OF SERVICE: 07/03/2019 SUBJECTIVE: Mr. Pollock is postoperative day 1 from C3-C6 ACDF. He has mild dysphonia and mild dysphagia. His myelopathic and radiculopathic symptoms are improved with good strength throughout his upper extremity myotomes and lower extremity myotomes. He is mobilizing. Voiding on his own. His drain output had been high, but has trended down to only 15 mL this morning. We will remove his drain. He is to hold his aspirin for the next 5 days and Plavix for 2 weeks. Job ID: [id number]
[2019-07-03] MEDS: Sodium Chloride 0.9% 1,000 ML IV SCH (13:44)
== END 2019-07-03 14:10 | disposition home or self-care (01) | DRG 472 ==
LOC: SURG A 05:56
PROVIDERS: ADMIT Surgery; ATTEND Surgery
PROC: 0RG20A0 Fusion of 2 or more Cervical Vertebral Joints with Interbody Fusion Device, Anterior Approach, Anterior Column, Open Approach (ICD-10-PCS; principal; 2019-07-02)
PROC: 0RT30ZZ Resection of Cervical Vertebral Disc, Open Approach (ICD-10-PCS; 2019-07-02)
DX: M48.02 Spinal stenosis, cervical region (principal); G99.2 Myelopathy in diseases classified elsewhere; M54.12 Radiculopathy, cervical region; R13.10 Dysphagia, unspecified; R49.0 Dysphonia; Z88.8 Allergy status to other drugs, medicaments and biological substances; Z79.899 Other long term (current) drug therapy
CPT/HCPCS: 36415; 36416; 76000; 80048; 85025; 85610; 85730; 93005; 93010; C1713; C1776; C9113; J0131; J0690; J1100; J1170; J2001; J2175; J2250; J2405; J2704; J3010; J3490

== ENCOUNTER 2019-07-24 10:15 | Outpatient (CLI) | payer MEDICARE, BC ==
--- NOTE | 2019-07-24 10:40 | RAD ---
XR Chest Pa Lat STANDARD HISTORY: Shortness of breath COMPARISON: None FINDINGS: The heart size is normal. The aorta is tortuous. There is elevation the right hemidiaphragm . The lungs are without focal areas of consolidation, pneumothorax or pleural effusions. There are degenerative changes in the spine. Postop changes are noted in the lower cervical spine. IMPRESSION: No radiographic evidence of acute cardiopulmonary process.
[2019-07-24 14:21] LABS: #Eosinphils 0.2 thou/uL (0.0-0.7); #Lymphocytes 1.3 thou/uL (1.20-3.40); #Monocytes 0.6 thou/uL (0.11-0.59); #Neutrophils 4.1 thou/uL (1.40-6.50); %Basophils 0.1 % (0.0-1.0); %Eosinophils 2.5 % (0.0-10.0); %Lymphocytes 21.4 % (21.0-51.0); %Monocytes 9.9 % (0.0-10.0); %Neutrophils 66.2 % (42.0-75.0); Hemoglobin 16.4 g/dL (14.0-18.0); Mean Corpuscular Hemoglobin 31.6 pg (27.0-31.0); Mean Corpuscular Volume 92.9 fL (78.0-98.0); Platelet Count 218 thou/uL (130-400); RBC Distribution Width 13.4 % (11.5-14.5); Red Blood Cell (RBC) Count 5.21 mill/uL (4.70-6.10); White Blood Cell (WBC) Count 6.2 thou/uL (4.8-10.8)
[2019-07-24 14:32] LABS: ALT (SGPT) 29 U/L (8-55); AST (SGOT) 27 U/L (5-34); Alkaline Phosphatase 101 U/L (40-110); Anion Gap 10 mmol/L (10-20); BUN (Urea Nitrogen) 9 mg/dL (8.4-25.7); Bilirubin, Total 0.7 mg/dL (0.2-1.2); Calc. Creatinine Clearance 0 mL/min (70-130); Calcium 9.8 mg/dL (7.8-10.44); Carbon Dioxide 31 mmol/L (23-31); Chloride 102 mmol/L (98-107); Estimated GFR-MDRD 67; Globulin 2.5 g/dL (2.4-3.5); Glucose 139 mg/dL (83-110); Potassium 4.2 mmol/L (3.5-5.1); Protein, Total 6.5 g/dL (5.8-8.1); Sodium 139 mmol/L (136-145)
== END 2019-07-24 10:16 | disposition home or self-care (01) ==
LOC: SCSRAD 10:15
PROVIDERS: ATTEND Family Medicine
DX: R06.02 Shortness of breath (principal)
CPT/HCPCS: 36415; 71046; 80053; 83880; 85025; 85379

== ENCOUNTER 2019-08-02 12:54 | Outpatient (CLI) | payer MEDICARE, BC ==
--- NOTE | 2019-08-02 13:53 | CT ---
EXAM: CTA of the chest HISTORY: Shortness of breath and chest pain COMPARISON: None TECHNIQUE: Multiple contiguous axial images were obtained a CTA of the chest with contrast per pulmon maldonado embolism protocol. 3-D oblique MIP reformats and direct coronal reformats were performed. FINDINGS: HEART: Normal in size without focal cardiac abnormality. Atherosclerotic calcifications in the coronado ry arteries. PULMONARY ARTERIES: Normal in caliber without filling defects to suggest pulmonary emboli. MEDIASTINUM: No hilar or mediastinal lymphadenopathy. LUNGS: No focal infiltrates or masses. PLEURAL SPACE: No pleural effusion or pneumothorax. CHEST WALL SOFT TISSUES: Unremarkable VISUALIZED OSSEOUS STRUCTURES: Degenerative changes in the spine. VISUALIZED SUBDIAPHRAGMATIC STRUCTURES: Unremarkable IMPRESSION: No evidence of pulmonary thromboembolism
== END 2019-08-02 12:55 | disposition home or self-care (01) ==
LOC: BICCT 12:54
PROVIDERS: ATTEND Family Medicine
DX: R06.02 Shortness of breath (principal)
CPT/HCPCS: 71275

== ENCOUNTER 2019-08-12 13:34 | Outpatient (CLI) | payer MEDICARE, BC ==
--- NOTE | 2019-08-12 15:53 | RAD ---
CERVICAL SPINE SERIES: HISTORY: Follow up surgery. FINDINGS: The patient has undergone anterior cervical fusion. There is placement of a plate and screws, which e xtend from C3 to C6. Markers of disk implants are within the confines of the disk levels. Arthritic c hanges of the facet joints are noted. IMPRESSION: Postoperative changes of the spine. POS: ZULEIKA
== END 2019-08-12 13:35 | disposition home or self-care (01) ==
LOC: TBSIIMAG 13:34
PROVIDERS: ATTEND Surgery
DX: M50.20 Other cervical disc displacement, unspecified cervical region (principal); Z98.1 Arthrodesis status
CPT/HCPCS: 72040

== ENCOUNTER 2019-09-02 13:27 | Outpatient (CLI) | payer MEDICARE, BC ==
--- NOTE | 2019-09-02 15:16 | RAD ---
SUPINE ABDOMEN: Date: 09/02/2019 INDICATION: Renal calculi. COMPARISON: 08/08/18. FINDINGS: A small calcification overlying the lower pole of the right kidney is again seen and is unchanged in appearance. No definite calcification overlying the left renal outline, although small calcifications could be obscured by overlying bowel content. Prostatic calcifications are again seen and are promin ent. Vascular calcifications in the pelvis appear stable. Bowel gas pattern unremarkable. IMPRESSION: Stable findings when compared to prior exam. POS: ZULEIKA
--- NOTE | 2019-09-02 15:21 | ULT ---
THYROID ULTRASOUND: HISTORY: Thyroid nodule. COMPARISON: No comparison study available. FINDINGS: Both lobes are homogeneous. The right lobe measures 1.2 x 4.0 x 1.3 cm. The left lobe measures 1.6 x 4.5 x 2.2 cm. The isthmus measures 0.3 cm. There is a complex partially cystic dominant nodule in the left lobe measuring 2.2 x 1.7 x 1.7 cm. There appears to be fluid surrounding this nodule, although this is ill-defined. Small solid nodule in the mid right lobe measures 0.4 to 0.7 cm. There are 2 other smaller cystic nodules in the right lobe measuring 2-3 mm. IMPRESSION: Dominant nodule in the mid left lobe. This is a TIRADS 4 lesion. recommend ultrasound-guided fine needle aspiration. POS: ZULEIKA
== END 2019-09-02 13:28 | disposition home or self-care (01) ==
LOC: BICULT 13:27
PROVIDERS: ATTEND Internal Medicine Endocrinology, Diabetes & Metabolism
DX: E04.1 Nontoxic single thyroid nodule (principal); E07.89 Other specified disorders of thyroid; Z87.442 Personal history of urinary calculi
CPT/HCPCS: 74018; 76536

== ENCOUNTER 2020-04-27 14:43 | Outpatient (CLI) | payer MEDICARE, BC ==
--- NOTE | 2020-04-27 15:57 | ULT ---
THYROID ULTRASOUND: Comparison 09/02/2019 HISTORY: Planning exam. Vertical cell thyroid cancer. FINDINGS: Thyroid isthmus: 0.5 cm Right thyroid lobe: 1.8 x 1.7 x 4.5 cm Left thyroid lobe: 2.3 x 2.1 x 4.9 cm Thyroid nodules: 0.8 x 0.5 x 0.6 cm hypo isoechoic solid nodule in the mid right thyroid lobe. 2.4 x 3.2 x 2.6 cm complex nodule in the left thyroid lobe. There may be a small focus of fluid along the inferior aspect of the mass measuring 1.3 cm. IMPRESSION: Redemonstration of a complex mass in the left thyroid lobe. Transcribed Date/Time: 04/27/2020 4:58 PM
== END 2020-04-27 14:44 | disposition home or self-care (01) ==
LOC: SCSULT 14:43
PROVIDERS: ATTEND Internal Medicine Endocrinology, Diabetes & Metabolism
DX: C73 Malignant neoplasm of thyroid gland (principal); E04.1 Nontoxic single thyroid nodule
CPT/HCPCS: 76536

== ENCOUNTER 2020-09-03 10:26 | Outpatient (CLI) | payer MEDICARE, BC ==
--- NOTE | 2020-09-03 11:06 | RAD ---
: 1 view abdomen HISTORY: Renal calculi. Comparison 09/02/2019 FINDINGS: Nonspecific bowel gas pattern. No suspicious densities pelvis. Multiple phleboliths are hardik ntified. There is stable calcification in the midline of the pelvis which is presumed to be associated with the prostate gland. No acute osseous abnormalities. There is evidence of previous laminectomy at L4. Redemonstration of a 0.8 cm calculus projecting over the lower right renal silhouette, unchanged IMPRESSION: 1. Right renal calculus projecting over the lower pole silhouette
== END 2020-09-03 10:27 | disposition home or self-care (01) ==
LOC: BICRAD 10:26
PROVIDERS: ATTEND Urology
DX: N20.0 Calculus of kidney (principal)
CPT/HCPCS: 74018; 81001

== ENCOUNTER 2020-12-03 16:50 | Observation (INO) | payer OTHER, MEDICARE, BC ==
[2020-12-03] MEDS ORDERED: Ondansetron PF 4 MG/2 ML Vial ONE ×2 (17:24→18:47)
[2020-12-03] MEDS ORDERED: Morphine 4 MG/ML VIAL ONE (17:24)
[2020-12-03 17:48] LABS: #Basophils 0.1 thou/uL (0.0-0.2); #Eosinphils 0.3 thou/uL (0.0-0.7); #Lymphocytes 1.5 thou/uL (1.20-3.40); #Monocytes 0.8 thou/uL (0.11-0.59); #Neutrophils 5.4 thou/uL (1.40-6.50); %Eosinophils 3.3 % (0.0-10.0); %Lymphocytes 18.7 % (21.0-51.0); %Monocytes 9.6 % (0.0-10.0); %Neutrophils 67.4 % (42.0-75.0); Hemoglobin 15.5 g/dL (14.0-18.0); Mean Corpuscular HGB CONC 34.1 g/dL (32.0-36.0); Mean Corpuscular Hemoglobin 31.7 pg (27.0-31.0); Mean Corpuscular Volume 92.9 fL (78.0-98.0); Platelet Count 173 thou/uL (130-400); RBC Distribution Width 12.5 % (11.5-14.5); Red Blood Cell (RBC) Count 4.89 mill/uL (4.70-6.10)
[2020-12-03 17:53] LABS: PTT 26.3 sec (22.9-36.1); Prothrombin Time 13.1 sec (12.0-14.7)
[2020-12-03 18:10] LABS: ALT (SGPT) 24 U/L (8-55); AST (SGOT) 30 U/L (5-34); Albumin 3.7 g/dL (3.4-4.8); Alkaline Phosphatase 75 U/L (40-110); Anion Gap 15 mmol/L (10-20); BUN (Urea Nitrogen) 15 mg/dL (8.4-25.7); Calc. Creatinine Clearance 0 mL/min (70-130); Calcium 9.4 mg/dL (7.8-10.44); Carbon Dioxide 26 mmol/L (23-31); Chloride 102 mmol/L (98-107); Globulin 2.8 g/dL (2.4-3.5); Glucose 111 mg/dL (83-110); Potassium 4.2 mmol/L (3.5-5.1); Protein, Total 6.5 g/dL (5.8-8.1); Sodium 139 mmol/L (136-145)
[2020-12-03] MEDS ORDERED: Famotidine/PF 20 mg/2ml Vial ONE (18:47)
[2020-12-03] MEDS ORDERED: Dextrose 50% Abboject 50 ML SYRINGE SLOW IVP PRN (19:17)
[2020-12-03] MEDS ORDERED: Ondansetron PF 4 MG/2 ML Vial IVP PRN (19:17)
[2020-12-03] MEDS ORDERED: HumaLOG 300 UNITS/3 ML VIAL SC PRN (19:17)
[2020-12-03] MEDS ORDERED: Dextrose 5% in Water 1,000 ML IV PRN (19:17)
[2020-12-03] MEDS ORDERED: traMADol HCl 50 MG TAB PO PRN (19:18)
[2020-12-03] MEDS ORDERED: hydrALAZINE 20 MG/ML VIAL SLOW IVP PRN (19:22)
[2020-12-03] MEDS ORDERED: Magnesium Oxide 400 MG TAB PO PRN (19:27)
[2020-12-03] MEDS ORDERED: Acetaminophen 325 MG TAB PO SCH (20:00)
[2020-12-03] MEDS ORDERED: Gabapentin 300 MG CAP PO SCH (21:00)
[2020-12-03] MEDS ORDERED: Ibuprofen 200 MG TAB PO SCH (22:00)
[2020-12-03] MEDS: Oxazepam 10 MG CAP PO SCH (22:21)
[2020-12-03 22:41] VITALS: BMI 32.5
[2020-12-03] MEDS: traMADol HCl 50 MG TAB PO SCH (23:06)
[2020-12-03] MEDS: Acetaminophen 325 MG TAB PO SCH (23:07)
[2020-12-04] MEDS ORDERED: Diazepam 2 MG TAB PO PRN (00:13)
[2020-12-04 03:17] LABS: SARS-CoV-2 NAA Rapid Test Not Detected (NotDetected)
[2020-12-04] MEDS: traMADol HCl 50 MG TAB PO SCH ×2 (05:05→12:46)
[2020-12-04] MEDS: Oxazepam 10 MG CAP PO SCH (05:05)
[2020-12-04] MEDS: Acetaminophen 325 MG TAB PO SCH ×2 (05:06→12:46)
[2020-12-04 05:52] LABS: #Eosinphils 0.2 thou/uL (0.0-0.7); #Lymphocytes 1.7 thou/uL (1.20-3.40); #Monocytes 0.7 thou/uL (0.11-0.59); %Basophils 0.6 % (0.0-1.0); %Lymphocytes 25.7 % (21.0-51.0); %Monocytes 10.3 % (0.0-10.0); %Neutrophils 60.5 % (42.0-75.0); Hemoglobin 15.7 g/dL (14.0-18.0); Mean Corpuscular HGB CONC 33.8 g/dL (32.0-36.0); Mean Corpuscular Hemoglobin 31.5 pg (27.0-31.0); Mean Platelet Volume 9.3 fL (7.4-10.4); Platelet Count 176 thou/uL (130-400); RBC Distribution Width 12.6 % (11.5-14.5); Red Blood Cell (RBC) Count 4.99 mill/uL (4.70-6.10); White Blood Cell (WBC) Count 6.6 thou/uL (4.8-10.8)
[2020-12-04 05:57] LABS: PTT 27.6 sec (22.9-36.1); Prothrombin Time 13.2 sec (12.0-14.7)
[2020-12-04 06:16] LABS: Anion Gap 14 mmol/L (10-20); BUN (Urea Nitrogen) 14 mg/dL (8.4-25.7); Calc. Creatinine Clearance 95 mL/min (70-130); Calcium 9.2 mg/dL (7.8-10.44); Carbon Dioxide 24 mmol/L (23-31); Chloride 101 mmol/L (98-107); Glucose 134 mg/dL (83-110); Potassium 3.9 mmol/L (3.5-5.1); Sodium 135 mmol/L (136-145)
[2020-12-04] MEDS ORDERED: Clopidogrel Bisulfate 75 MG TAB PO SCH (09:00)
[2020-12-04] MEDS ORDERED: Pregabalin 75 MG CAP PO SCH (09:00)
[2020-12-04] MEDS ORDERED: Polyethylene Glycol 3350 17 GM Packet PO SCH (09:00)
[2020-12-04 12:07] VITALS: BP 187/82; TEMP 97.5
[2020-12-04] MEDS ORDERED: Ibuprofen 200 MG TAB PO SCH (14:00)
== END 2020-12-04 12:20 | disposition home or self-care (01) ==
LOC: ERS 16:50 → SURG A 19:12
PROVIDERS: ADMIT Surgery; ATTEND Surgery
DX: S27.1XXA Traumatic hemothorax, initial encounter (principal); S22.41XA Multiple fractures of ribs, right side, initial encounter for closed fracture; G89.11 Acute pain due to trauma; I25.10 Atherosclerotic heart disease of native coronary artery without angina pectoris; E11.9 Type 2 diabetes mellitus without complications; G89.29 Other chronic pain; M54.9 Dorsalgia, unspecified; K21.9 Gastro-esophageal reflux disease without esophagitis; Z79.84 Long term (current) use of oral hypoglycemic drugs; Z79.899 Other long term (current) drug therapy; Z95.5 Presence of coronary angioplasty implant and graft; Z87.891 Personal history of nicotine dependence; Z20.822 Contact with and (suspected) exposure to COVID-19; V80.010A Animal-rider injured by fall from or being thrown from horse in noncollision accident, initial encounter
CPT/HCPCS: 71045; 71250; 80048; 80053; 85025 ×2; 85610 ×2; 85730 ×2; 93005; 97139 ×3; U0002; 36415; 87635; 96374; 96375; 96376; G0378; J0360; J2270; J2405; S0028; U0003; U0005

== ENCOUNTER 2023-05-07 16:44 | Inpatient (IN) | payer MEDICARE, BC ==
[~2023-05-07 16:44] MED LIST: Iopamidol-370 76% 500 ML MDV (1 ML CHARGE) ONE
[2023-05-07 17:02] LABS: #Basophils 0.1 thou/uL (0.0-0.2); #Neutrophils 4.9 thou/uL (1.40-6.50); %Basophils 1.1 % (0.0-1.0); %Eosinophils 0.4 % (0.0-10.0); %Lymphocytes 26.2 % (21.0-51.0); %Monocytes 12.5 % (0.0-10.0); %Neutrophils 58.8 % (42.0-75.0); Hematocrit 46.7 % (42.0-52.0); Hemoglobin 15.8 g/dL (14.0-18.0); Mean Corpuscular HGB CONC 33.8 g/dL (32.0-36.0); Mean Corpuscular Hemoglobin 30.5 pg (27.0-31.0); Mean Corpuscular Volume 90.2 fl (78.0-98.0); Mean Platelet Volume 11.5 fL (7.4-10.4); Platelet Count 194 10x3/uL (130-400); RBC Distribution Width 15.2 % (11.5-14.5); Red Blood Cell (RBC) Count 5.18 mill/uL (4.70-6.10); White Blood Cell (WBC) Count 8.3 10x3/uL (4.8-10.8)
[2023-05-07 17:11] LABS: PTT 22.7 sec (22.9-36.1); Prothrombin Time 13.9 sec (12.0-14.7)
[2023-05-07 17:28] LABS: ALT (SGPT) 37 U/L (8-55); AST (SGOT) 57 U/L (5-34); Albumin 3.9 g/dL (3.4-4.8); Alkaline Phosphatase 76 U/L (40-110); Anion Gap 16 mmol/L (10-20); BUN (Urea Nitrogen) 14 mg/dL (8.4-25.7); Bilirubin, Total 0.7 mg/dL (0.2-1.2); CK (CPK) 156 U/L (30-200); Calc. Creatinine Clearance 0 mL/min (70-130); Calcium 9.3 mg/dL (7.8-10.44); Carbon Dioxide 22 mmol/L (23-31); Chloride 107 mmol/L (98-107); Estimated GFR 62; Globulin 2.7 g/dL (2.4-3.5); Glucose 186 mg/dL (83-110); Protein, Total 6.6 g/dL (5.8-8.1); Sodium 141 mmol/L (136-145)
[2023-05-07 17:34] LABS: Troponin I 3.435 ng/mL (< 0.028)
[2023-05-07] MEDS ORDERED: Ondansetron PF 4 MG/2 ML Vial IVP PRN (18:27)
[2023-05-07] MEDS ORDERED: Albuterol 200 PUFF (6.7GM INHALER) INH PRN (18:29)
[2023-05-07] MEDS ORDERED: Dextrose 50% Abboject 50 ML SYRINGE SLOW IVP PRN (18:32)
[2023-05-07] MEDS ORDERED: Dextrose 5% in Water 1,000 ML IV PRN (18:32)
[2023-05-07] MEDS ORDERED: Glucagon 1 MG/ML KIT IM PRN (18:32)
[2023-05-07] MEDS ORDERED: hydrOXYzine 25 MG TAB PO PRN (18:42)
[2023-05-07 20:55] LABS: Critical Call Chem Troponin I RESULT DECREASING; Troponin I 3.321 ng/mL (< 0.028)
[2023-05-07 21:35] VITALS: BMI 35.8
[2023-05-07] MEDS: Atorvastatin Calcium 40 MG TAB PO SCH (22:09)
[2023-05-07] MEDS: hydrOXYzine 25 MG TAB PO SCH (22:09)
[2023-05-07] MEDS: Melatonin 3 MG TAB PO SCH (22:09)
[2023-05-08 00:06] LABS: Critical Call Chem Troponin I RESULT DECREASING; Troponin I 3.011 ng/mL (< 0.028)
[2023-05-08 04:56] LABS: #Basophils 0.1 thou/uL (0.0-0.2); #Monocytes 0.8 thou/uL (0.11-0.59); #Neutrophils 4.9 thou/uL (1.40-6.50); %Eosinophils 0.5 % (0.0-10.0); %Lymphocytes 20.5 % (21.0-51.0); %Monocytes 10.6 % (0.0-10.0); %Neutrophils 66.6 % (42.0-75.0); Hematocrit 45.4 % (42.0-52.0); Hemoglobin 15.1 g/dL (14.0-18.0); Mean Corpuscular HGB CONC 33.3 g/dL (32.0-36.0); Mean Corpuscular Volume 90.1 fl (78.0-98.0); Mean Platelet Volume 11.6 fL (7.4-10.4); Platelet Count 166 10x3/uL (130-400); RBC Distribution Width 15.3 % (11.5-14.5); Red Blood Cell (RBC) Count 5.04 mill/uL (4.70-6.10); White Blood Cell (WBC) Count 7.3 10x3/uL (4.8-10.8)
[2023-05-08 05:19] LABS: Anion Gap 14 mmol/L (10-20); BUN (Urea Nitrogen) 14 mg/dL (8.4-25.7); Calc. Creatinine Clearance 99 mL/min (70-130); Calcium 8.6 mg/dL (7.8-10.44); Carbon Dioxide 23 mmol/L (23-31); Cardiac Risk 4.8 (Less than 4.5); Chloride 108 mmol/L (98-107); Cholesterol 145 mg/dl (< 200 Desired); Estimated GFR 70; Glucose 176 mg/dL (83-110); HDL Cholesterol 30 mg/dL (>60 Neg Risk); LDL Cholesterol, Calculated 89 mg/dL; Potassium 4.3 mmol/L (3.5-5.1); Sodium 141 mmol/L (136-145); Triglycerides 129 mg/dL (Less than 150)
[2023-05-08] MEDS: Levothyroxine Sodium 50 MCG TAB PO SCH (06:21)
[2023-05-08] MEDS: Clopidogrel Bisulfate 75 MG TAB PO SCH (08:53)
[2023-05-08] MEDS: Aspirin 81 mg Enteric Coated Tablet PO SCH (08:54)
[2023-05-08] MEDS ORDERED: Lidocaine 1% PF 5 ML VIAL ONE (12:00)
[2023-05-08] MEDS ORDERED: PROPOFOL 200 MG/20 ML VIAL ONE (12:00)
[2023-05-08] MEDS ORDERED: hydrALAZINE 20 MG/ML VIAL SLOW IVP PRN (15:38)
[2023-05-08] MEDS ORDERED: hydrALAZINE 20 MG/ML VIAL SLOW IVP SCH (15:45)
[2023-05-08] MEDS: ALPRAZolam 0.25 MG TAB PO PRN ×2 (16:46→21:06)
[2023-05-08] MEDS: Acetaminophen 325 MG TAB PO PRN (16:50)
[2023-05-08] MEDS: HumaLOG 300 UNITS/3 ML VIAL SC PRN (18:48)
[2023-05-08] MEDS: Melatonin 3 MG TAB PO SCH (20:29)
[2023-05-08] MEDS: Pregabalin 75 MG CAP PO SCH (20:30)
[2023-05-08] MEDS: hydrOXYzine 25 MG TAB PO SCH (20:30)
[2023-05-08] MEDS: Atorvastatin Calcium 40 MG TAB PO SCH (20:32)
[2023-05-09 04:52] LABS: #Basophils 0.1 thou/uL (0.0-0.2); #Eosinphils 0.1 thou/uL (0.0-0.7); #Monocytes 1.1 thou/uL (0.11-0.59); #Neutrophils 7.2 thou/uL (1.40-6.50); %Basophils 0.8 % (0.0-1.0); %Eosinophils 0.7 % (0.0-10.0); %Lymphocytes 12.8 % (21.0-51.0); %Monocytes 11.6 % (0.0-10.0); %Neutrophils 73.1 % (42.0-75.0); Hematocrit 46.4 % (42.0-52.0); Hemoglobin 15.7 g/dL (14.0-18.0); Mean Corpuscular HGB CONC 33.8 g/dL (32.0-36.0); Mean Corpuscular Hemoglobin 30.5 pg (27.0-31.0); Mean Corpuscular Volume 90.1 fl (78.0-98.0); Mean Platelet Volume 11.9 fL (7.4-10.4); Platelet Count 162 10x3/uL (130-400); Red Blood Cell (RBC) Count 5.15 mill/uL (4.70-6.10); White Blood Cell (WBC) Count 9.9 10x3/uL (4.8-10.8)
[2023-05-09 05:31] LABS: ALT (SGPT) 43 U/L (8-55); Albumin 3.4 g/dL (3.4-4.8); Bilirubin, Total 1.2 mg/dL (0.2-1.2); Globulin 2.4 g/dL (2.4-3.5); Magnesium 1.9 mg/dL (1.6-2.6); Protein, Total 5.8 g/dL (5.8-8.1)
[2023-05-09 05:32] LABS: Anion Gap 10 mmol/L (10-20); BUN (Urea Nitrogen) 12 mg/dL (8.4-25.7); Calc. Creatinine Clearance 100 mL/min (70-130); Carbon Dioxide 27 mmol/L (23-31); Chloride 104 mmol/L (98-107); Estimated GFR 71; Glucose 153 mg/dL (83-110); Sodium 137 mmol/L (136-145)
[2023-05-09 05:34] LABS: AST (SGOT) 51 U/L (5-34); Alkaline Phosphatase 69 U/L (40-110); Calcium 8.8 mg/dL (7.6-10.4)
[2023-05-09] MEDS: Levothyroxine Sodium 50 MCG TAB PO SCH (07:11)
[2023-05-09] MEDS: Aspirin 81 mg Enteric Coated Tablet PO SCH (08:48)
[2023-05-09] MEDS: Pregabalin 75 MG CAP PO SCH ×2 (08:49→21:05)
[2023-05-09] MEDS: Clopidogrel Bisulfate 75 MG TAB PO SCH (08:49)
[2023-05-09] MEDS: Acetaminophen 325 MG TAB PO PRN (08:50)
[2023-05-09] MEDS: HumaLOG 300 UNITS/3 ML VIAL SC PRN ×2 (12:46→18:22)
[2023-05-09] MEDS ORDERED: Losartan 25 MG TAB PO SCH (16:00)
[2023-05-09] MEDS: hydrOXYzine 25 MG TAB PO SCH (21:04)
[2023-05-09] MEDS: QUEtiapine 25 MG TAB PO SCH ×2 (21:05→23:37)
[2023-05-09] MEDS: Atorvastatin Calcium 40 MG TAB PO SCH (21:08)
[2023-05-09] MEDS: ALPRAZolam 0.25 MG TAB PO PRN (21:10)
[2023-05-09] MEDS ORDERED: Melatonin 3 MG TAB PO SCH (21:15)
[2023-05-09] MEDS: Melatonin 3 MG TAB PO SCH (23:41)
[2023-05-10 04:47] LABS: #Basophils 0.1 thou/uL (0.0-0.2); #Eosinphils 0.1 thou/uL (0.0-0.7); #Monocytes 1.1 thou/uL (0.11-0.59); #Neutrophils 7.4 thou/uL (1.40-6.50); %Eosinophils 0.8 % (0.0-10.0); %Lymphocytes 14.3 % (21.0-51.0); %Neutrophils 71.7 % (42.0-75.0); Hematocrit 46.7 % (42.0-52.0); Mean Corpuscular HGB CONC 34.3 g/dL (32.0-36.0); Mean Corpuscular Hemoglobin 30.2 pg (27.0-31.0); Mean Corpuscular Volume 88.3 fl (78.0-98.0); Mean Platelet Volume 11.9 fL (7.4-10.4); Platelet Count 186 10x3/uL (130-400); RBC Distribution Width 14.9 % (11.5-14.5); Red Blood Cell (RBC) Count 5.29 mill/uL (4.70-6.10); White Blood Cell (WBC) Count 10.3 10x3/uL (4.8-10.8)
[2023-05-10 05:20] LABS: Anion Gap 14 mmol/L (10-20); BUN (Urea Nitrogen) 16 mg/dL (8.4-25.7); Calc. Creatinine Clearance 87 mL/min (70-130); Carbon Dioxide 26 mmol/L (23-31); Chloride 101 mmol/L (98-107); Estimated GFR 60; Glucose 180 mg/dL (83-110); Potassium 4.4 mmol/L (3.5-5.1); Sodium 137 mmol/L (136-145)
[2023-05-10] MEDS: Levothyroxine Sodium 50 MCG TAB PO SCH ×2 (05:57→19:25)
[2023-05-10] MEDS: HumaLOG 300 UNITS/3 ML VIAL SC PRN (06:43)
[2023-05-10] MEDS: Clopidogrel Bisulfate 75 MG TAB PO SCH (11:25)
[2023-05-10] MEDS: Aspirin 81 mg Enteric Coated Tablet PO SCH (11:25)
[2023-05-10] MEDS: Pregabalin 75 MG CAP PO SCH ×2 (11:25→19:24)
[2023-05-10] MEDS ORDERED: Aspirin 300 MG Suppository PR SCH (11:30)
[2023-05-10] MEDS ORDERED: diphenhydrAMINE 50 MG/ML VIAL IVP PRN (17:53)
[2023-05-10] MEDS: hydrOXYzine 25 MG TAB PO SCH (19:22)
[2023-05-10] MEDS: Atorvastatin Calcium 40 MG TAB PO SCH (19:22)
[2023-05-10] MEDS ORDERED: QUEtiapine 25 MG TAB PO SCH (21:00)
[2023-05-10] MEDS ORDERED: Melatonin 3 MG TAB PO SCH (21:00)
[2023-05-10] MEDS ORDERED: Lorazepam 2 MG/ML VIAL SLOW IVP SCH (22:30)
[2023-05-11] MEDS ORDERED: hydrALAZINE 20 MG/ML VIAL SLOW IVP PRN (02:49)
[2023-05-11] MEDS ORDERED: Lorazepam 2 MG/ML VIAL SLOW IVP SCH (03:00)
[2023-05-11] MEDS: Pregabalin 75 MG CAP PO SCH ×2 (07:37→10:38)
[2023-05-11] MEDS ORDERED: Aspirin 300 MG Suppository PR SCH (09:00)
[2023-05-11] MEDS: Clopidogrel Bisulfate 75 MG TAB PO SCH (10:38)
[2023-05-11 12:15] VITALS: TEMP 97.9
[2023-05-11 12:48] VITALS: BP 138/68
== END 2023-05-11 13:31 | DRG 65 ==
LOC: ERS 16:44 → SUATTDRO 16:44 → 2SE 17:52
PROVIDERS: ADMIT Family Medicine; ATTEND Family Medicine
DX: I63.9 Cerebral infarction, unspecified (principal); G81.91 Hemiplegia, unspecified affecting right dominant side; I24.89 Other forms of acute ischemic heart disease; I47.20 Ventricular tachycardia, unspecified; I10 Essential (primary) hypertension; I25.10 Atherosclerotic heart disease of native coronary artery without angina pectoris; R29.711 NIHSS score 11; R29.810 Facial weakness; K21.9 Gastro-esophageal reflux disease without esophagitis; F41.9 Anxiety disorder, unspecified; G47.00 Insomnia, unspecified; E11.51 Type 2 diabetes mellitus with diabetic peripheral angiopathy without gangrene; I48.0 Paroxysmal atrial fibrillation; Z98.890 Other specified postprocedural states; Z88.6 Allergy status to analgesic agent; Z88.8 Allergy status to other drugs, medicaments and biological substances; Z79.899 Other long term (current) drug therapy; Z79.890 Hormone replacement therapy; Z95.5 Presence of coronary angioplasty implant and graft; Z79.84 Long term (current) use of oral hypoglycemic drugs; Z79.51 Long term (current) use of inhaled steroids
CPT/HCPCS: 36415; 36416; 70450; 70496; 70498; 70553; 71045; 74230; 80048; 80053; 80061; 82550; 83735; 84443; 84484; 85025; 93005; 93306; J0360; J1200; J1650; J1815; J2060; J2405; J2704; Q9967

== ENCOUNTER 2023-06-30 07:59 | Emergency (ER) | payer MEDICARE, BC ==
[2023-06-30] MEDS ORDERED: Acetaminophen 500 MG TAB ONE (08:44)
== END 2023-06-30 10:49 | disposition home or self-care (01) ==
LOC: ERS 07:59
DX: S00.83XA Contusion of other part of head, initial encounter (principal); M79.641 Pain in right hand; I48.91 Unspecified atrial fibrillation; Z79.899 Other long term (current) drug therapy; Z79.01 Long term (current) use of anticoagulants; W18.30XA Fall on same level, unspecified, initial encounter
CPT/HCPCS: 70450; 70486; 72125

== ENCOUNTER 2024-01-08 12:54 | Inpatient (IN) | payer MEDICARE, BC ==
[2024-01-08] MEDS ORDERED: Aspirin Chewable 81 MG TAB ONE (13:56)
[2024-01-08 14:01] LABS: #Basophils 0.08 10x3/uL (0.0-0.2); %Basophils 1.2 % (0.0-1.0); %Eosinophils 0.6 % (0.0-10.0); %Monocytes 10.4 % (0.0-10.0); %Neutrophils 65.5 % (42.0-75.0); Hematocrit 50.1 % (42.0-52.0); Hemoglobin 16.8 g/dL (14.0-18.0); Mean Corpuscular HGB CONC 33.5 g/dL (32.0-36.0); Mean Corpuscular Hemoglobin 30.8 pg (27.0-31.0); Mean Corpuscular Volume 91.8 fL (78.0-98.0); Platelet Count 142 10x3/uL (130-400); RBC Distribution Width 13.9 % (11.5-14.5); Red Blood Cell (RBC) Count 5.46 mill/uL (4.70-6.10)
[2024-01-08 14:13] LABS: INR-International Normal Ratio 1.1; PTT 30.3 sec (22.9-36.1); Prothrombin Time 13.7 sec (12.0-14.7)
[2024-01-08 14:16] LABS: Acetaminophen Less than 10 mcg/mL (10.0-30.0); Alcohol Less than 10.0 mg/dL (Less than 10); Salicylate Less than 8.0 mg/dL (15.0-30.0)
[2024-01-08 14:20] LABS: Troponin I 0.033 ng/mL (< 0.028)
[2024-01-08 15:56] LABS: ALT (SGPT) 24 U/L (8-55); AST (SGOT) 31 U/L (5-34); Albumin 3.8 g/dL (3.4-4.8); Alkaline Phosphatase 86 U/L (40-110); Anion Gap 21 mmol/L (10-20); BUN (Urea Nitrogen) 12 mg/dL (8.4-25.7); Bilirubin, Total 1.3 mg/dL (0.2-1.2); Calc. Creatinine Clearance 0 mL/min (70-130); Calcium 9.9 mg/dL (7.8-10.44); Carbon Dioxide 20 mmol/L (23-31); Chloride 104 mmol/L (98-107); Estimated GFR 61; Globulin 3.4 g/dL (2.4-3.5); Glucose 125 mg/dL (83-110); Potassium 4.3 mmol/L (3.5-5.1); Protein, Total 7.2 g/dL (5.8-8.1); Sodium 141 mmol/L (136-145)
[2024-01-08 17:03] LABS: Magnesium 1.6 mg/dL (1.6-2.6)
[2024-01-08 17:27] LABS: Troponin I 0.031 ng/mL (< 0.028)
[2024-01-08] MEDS ORDERED: Glucagon 1 MG/ML KIT IM PRN (18:23)
[2024-01-08] MEDS ORDERED: hydrALAZINE 20 MG/ML VIAL SLOW IVP PRN (18:23)
[2024-01-08] MEDS ORDERED: Ondansetron ODT 4 MG TAB PO PRN (18:23)
[2024-01-08] MEDS ORDERED: Ondansetron PF 4 MG/2 ML Vial IVP PRN (18:23)
[2024-01-08] MEDS ORDERED: Dextrose 50% Abboject 50 ML SYRINGE SLOW IVP PRN (18:23)
[2024-01-08] MEDS ORDERED: Dextrose 5% in Water 1,000 ML IV PRN (18:23)
[2024-01-08] MEDS ORDERED: Magnesium 2 GM/50 ML BAG (IN WATER) ONE (19:31)
[2024-01-08] MEDS: Magnesium 2 GM/50 ML(in water) 2 GM in Premix 1 BAG IVPB SCH (19:33)
[2024-01-08 20:55] LABS: Troponin I 0.029 ng/mL (< 0.028)
[2024-01-08] MEDS ORDERED: Folic Acid 1 MG TAB ONE (20:56)
[2024-01-08] MEDS ORDERED: hydrOXYzine 25 MG TAB ONE (20:56)
[2024-01-08] MEDS ORDERED: Atorvastatin Calcium 40 MG TAB ONE (20:56)
[2024-01-08] MEDS: Atorvastatin Calcium 40 MG TAB PO SCH (21:02)
[2024-01-08] MEDS: hydrOXYzine 25 MG TAB PO SCH (21:03)
[2024-01-08] MEDS: Folic Acid 1 MG TAB PO SCH (21:03)
[2024-01-08] MEDS ORDERED: Lorazepam 1 MG TAB ONE (21:53)
[2024-01-08] MEDS: Cholecalciferol 1,000 UNITS (25 MCG) TAB PO SCH (21:58)
[2024-01-08] MEDS: Lorazepam 1 MG TAB PO SCH (21:58)
[2024-01-08 23:43] VITALS: BMI 33.7
[2024-01-09] MEDS ORDERED: Sterile Water 10 ML VIAL FS PRN ×2 (00:30→16:45)
[2024-01-09] MEDS: Ziprasidone 20 MG VIAL IM SCH ×3 (00:58→17:31)
[2024-01-09] MEDS: ALPRAZolam 1 MG TAB PO SCH (01:36)
[2024-01-09 03:46] LABS: %Basophils 1.5 % (0.0-1.0); %Eosinophils 0.9 % (0.0-10.0); %Lymphocytes 23.6 % (21.0-51.0); %Monocytes 10.7 % (0.0-10.0); Hematocrit 48.6 % (42.0-52.0); Hemoglobin 16.4 g/dL (14.0-18.0); Mean Corpuscular HGB CONC 33.7 g/dL (32.0-36.0); Mean Corpuscular Hemoglobin 30.6 pg (27.0-31.0); Mean Corpuscular Volume 90.7 fL (78.0-98.0); Mean Platelet Volume 12.7 fL (7.4-10.4); Platelet Count 138 10x3/uL (130-400); RBC Distribution Width 13.5 % (11.5-14.5); Red Blood Cell (RBC) Count 5.36 mill/uL (4.70-6.10)
[2024-01-09 03:52] LABS: Hemoglobin A1c 6.4 % (4.0-6.0)
[2024-01-09 04:15] LABS: Anion Gap 18 mmol/L (10-20); BUN (Urea Nitrogen) 9 mg/dL (8.4-25.7); Calc. Creatinine Clearance 84 mL/min (70-130); Calcium 9.7 mg/dL (7.8-10.44); Carbon Dioxide 23 mmol/L (23-31); Cardiac Risk 3.8 (Less than 4.5); Chloride 103 mmol/L (98-107); Cholesterol 103 mg/dl (< 200 Desired); Estimated GFR 62; Glucose 130 mg/dL (83-110); HDL Cholesterol 27 mg/dL (>60 Neg Risk); LDL Cholesterol, Calculated 45 mg/dL; Potassium 4.4 mmol/L (3.5-5.1); Sodium 140 mmol/L (136-145); Triglycerides 153 mg/dL (Less than 150)
[2024-01-09 05:04] LABS: Thyroid Stimulating Hormone 4.609 uIU/mL (0.35-4.94)
[2024-01-09] MEDS ORDERED: Calcium Carbonate 500 MG ChewTAB PO PRN (09:06)
[2024-01-09] MEDS ORDERED: ALPRAZolam 0.25 MG TAB PO PRN (09:07)
[2024-01-09] MEDS: Calcium Carbonate 500 MG ChewTAB PO SCH (09:33)
[2024-01-09] MEDS: Aspirin 81 mg Enteric Coated Tablet PO SCH (09:33)
[2024-01-09] MEDS: Clopidogrel Bisulfate 75 MG TAB PO SCH (09:33)
[2024-01-09] MEDS: Cyanocobalamin (Vitamin B-12) 1,000 MCG TAB PO SCH (09:33)
[2024-01-09] MEDS: hydrOXYzine 25 MG TAB PO PRN (11:00)
[2024-01-09] MEDS: Lorazepam 2 MG/ML VIAL SLOW IVP SCH (14:06)
[2024-01-09] MEDS: Lorazepam 2 MG/ML VIAL ONE (14:13)
[2024-01-09] MEDS: ALPRAZolam 0.5 MG TAB PO PRN (16:22)
[2024-01-09 17:02] LABS: Bacteria/HPF None Seen HPF (None Seen); Bilirubin Negative (Negative); Blood, Urine 1+ (Negative); CAUTI Indications for Culture Alt mental st,lethar; Clarity Clear (Clear); Glucose, Urine (Dipstick) Normal (Negative); Ketone, Urine Negative (Negative); Leukocyte 75 Leu/uL (Negative); Nitrite Negative (Negative); Protein, Urine (Dipstick) Negative (Neg-Trace); Specific Gravity, Urine 1.017 (1.002-1.036); Squamous Epithelial None Seen HPF (0-3); Urobilinogen 6 mg/dL (Less than 2)
[2024-01-09 17:22] LABS: Urine Culture Reflex No No
[2024-01-09] MEDS: Ziprasidone 20 MG VIAL ONE (17:27)
[2024-01-09] MEDS: Sterile Water 10 ML ONE (17:27)
[2024-01-09] MEDS ORDERED: PREGABALIN 225 MG PO SCH (21:00)
[2024-01-09] MEDS ORDERED: QUEtiapine 25 MG TAB PO SCH (21:00)
[2024-01-09] MEDS: cefTRIAXone\\ROCEPHIN 1 GM in Sodium Chloride 0.9% 100 ML IVPB SCH (22:30)
[2024-01-09] MEDS: Pregabalin 75 MG CAP PO SCH (22:31)
[2024-01-09] MEDS: Melatonin 3 MG TAB PO SCH (22:32)
[2024-01-09] MEDS: QUEtiapine 25 MG TAB PO SCH (22:33)
[2024-01-10 05:10] LABS: #Basophils 0.09 10x3/uL (0.0-0.2); %Basophils 1.4 % (0.0-1.0); %Eosinophils 3.3 % (0.0-10.0); %Lymphocytes 25.7 % (21.0-51.0); %Monocytes 19.9 % (0.0-10.0); %Neutrophils 49.4 % (42.0-75.0); Hematocrit 47.8 % (42.0-52.0); Hemoglobin 16.7 g/dL (14.0-18.0); Mean Corpuscular HGB CONC 34.9 g/dL (32.0-36.0); Mean Corpuscular Hemoglobin 30.7 pg (27.0-31.0); Mean Corpuscular Volume 87.9 fL (78.0-98.0); Mean Platelet Volume 13.3 fL (7.4-10.4); Platelet Count 115 10x3/uL (130-400); RBC Distribution Width 13.8 % (11.5-14.5); Red Blood Cell (RBC) Count 5.44 mill/uL (4.70-6.10)
[2024-01-10 05:34] LABS: Anion Gap 17 mmol/L (10-20); BUN (Urea Nitrogen) 8 mg/dL (8.4-25.7); Calc. Creatinine Clearance 100 mL/min (70-130); Calcium 9.3 mg/dL (7.8-10.44); Carbon Dioxide 22 mmol/L (23-31); Chloride 106 mmol/L (98-107); Estimated GFR 76; Glucose 102 mg/dL (83-110); Potassium 4.1 mmol/L (3.5-5.1); Sodium 141 mmol/L (136-145)
[2024-01-10] MEDS: Levothyroxine Sodium 50 MCG TAB PO SCH (06:47)
[2024-01-10] MEDS: ALPRAZolam 0.25 MG TAB PO PRN (20:54)
[2024-01-10] MEDS: Acetaminophen 325 MG TAB PO PRN (21:39)
[2024-01-11 04:22] LABS: Anion Gap 16 mmol/L (10-20); BUN (Urea Nitrogen) 12 mg/dL (8.4-25.7); Calc. Creatinine Clearance 84 mL/min (70-130); Calcium 9.2 mg/dL (7.8-10.44); Carbon Dioxide 23 mmol/L (23-31); Chloride 105 mmol/L (98-107); Estimated GFR 62; Glucose 99 mg/dL (83-110); Sodium 140 mmol/L (136-145)
[2024-01-11 04:32] LABS: #Basophils 0.12 10x3/uL (0.0-0.2); %Basophils 1.9 % (0.0-1.0); %Eosinophils 5.7 % (0.0-10.0); %Lymphocytes 33.1 % (21.0-51.0); %Neutrophils 46.1 % (42.0-75.0); Hematocrit 48.5 % (42.0-52.0); Hemoglobin 16.3 g/dL (14.0-18.0); Mean Corpuscular HGB CONC 33.6 g/dL (32.0-36.0); Mean Corpuscular Hemoglobin 30.2 pg (27.0-31.0); Mean Platelet Volume 13.2 fL (7.4-10.4); Platelet Count 127 10x3/uL (130-400); Red Blood Cell (RBC) Count 5.39 mill/uL (4.70-6.10)
[2024-01-11 08:27] VITALS: TEMP 98.1
[2024-01-11 13:44] VITALS: BP 114/70
== END 2024-01-11 12:50 | disposition home or self-care (01) | DRG 92 ==
LOC: ERS 12:54 → ERHOLD 16:21 → 2SE 22:57 → OBSVTOIN 01-09 14:22
PROVIDERS: ADMIT Internal Medicine; ATTEND Family Medicine
DX: G92.8 Other toxic encephalopathy (principal); N39.0 Urinary tract infection, site not specified; R47.01 Aphasia; E03.9 Hypothyroidism, unspecified; R73.03 Prediabetes; I25.10 Atherosclerotic heart disease of native coronary artery without angina pectoris; T42.4X5A Adverse effect of benzodiazepines, initial encounter; T43.595A Adverse effect of other antipsychotics and neuroleptics, initial encounter; T42.6X5A Adverse effect of other antiepileptic and sedative-hypnotic drugs, initial encounter; I73.9 Peripheral vascular disease, unspecified; G47.33 Obstructive sleep apnea (adult) (pediatric); I10 Essential (primary) hypertension; F41.8 Other specified anxiety disorders; G89.4 Chronic pain syndrome; F43.9 Reaction to severe stress, unspecified; Z88.5 Allergy status to narcotic agent; Z79.899 Other long term (current) drug therapy
CPT/HCPCS: 36415; 36416; 70450; 70496; 70498; 70551; 80048; 80053; 80061; 80307; 81001; 82550; 82607; 83036; 83735; 83880; 84443; 84484; 85025; 85610; 85730; 93005; 93306; 96374; G0378; J0696; J2060; J3475; J3486; J3490; Q9967